=== PATIENT | female | born 1960 | race Caucasian/White ===

== ENCOUNTER 2023-09-06 15:16 | Emergency (ER) | payer OTHER, SELFPAY ==
[2023-09-06] VITALS (48 sets, daily range): BP systolic 101–142; BP diastolic 63–103
[2023-09-06] MEDS: DILAUDID 0.5 MG IV (15:31)
--- NOTE | 2023-09-06 16:45 | ED.GENMED ---
History of Present Illness
<Gaviota Tian PA-C - Last Filed: 09/06/23 20:46>
General
Chief Complaint: Fall
Source: patient
Exam Limitations: none
Time Seen by Provider: 09/06/23 15:21
Nursing documentation reviewed up to this point in time: agreed with
Travel History
Have you had any contact with someone who has COVID-19?: No
Do you have any symptoms of coronavirus? Fever > 100 degrees, chills, cough, shortness of breath, sore throat, loss of taste or smell, muscle aches, or headache?: No
History of Present Illness
History of Present Illness:
63 Y/O F with no sig pmh
here with left hip/leg pain after fall
she was walking carrying her 3 year old granddaughter and somehow tripped and fell
she doesn't really know how she landed but denies hitting her head
the grandchild didn't get injured
pt was unable to get up
she has abrasions on her left knee and is unable to move her left leg
she says 'it's locked.'
she has no headache, neck pain, cp, sob, syncope, vomiting, numbness/tingling/weakness, back pain
via EMS.
Past History
<Gaviota Tian PA-C - Last Filed: 09/06/23 20:46>
Past History
ED Past Medical History: None
ED Past Surgical History: None
Social History
Tobacco: Non-smoker
Alcohol: None
Drug: None
Personal:
Living: with family
Review of Systems
<GOMEZ Ace Last Filed: 09/06/23 20:46>
Review of Systems
Allergies reviewed?: Yes
All Other Systems: Not applicable
Phy Exam
<Gaviota Tian PA-C - Last Filed: 09/06/23 20:46>
Physical Exam
Physical Exam:
GENERAL: Alert , in no apparent distress
HEAD: NCAT
NECK: no midline tenderness, active ROM intact, no paraspinal muscle tenderness;
EYE: pupils equal and reactive, EOMs intact.
ENT: o/p clr, mmm. no hemotympanum
CARDIAC: Regular rate and rhythm, no edema
LUNGS: Clear breath sounds bilaterally, no acute respiratory distress, no wheezes/rales/rhonchi
ABDOMEN: Soft, without focal tenderness, no r/g, no cvat
NEUROLOGICAL: Alert and oriented, no focal neuro deficits, CN intact, 5/5 strength, sensation intact
SKIN: Warm and dry, abrasions left knee
MUSCULOSKELETAL: left knee flexed, cannot fully extend, due to left hip pain
laying on right hip
unable to move the left hip
normal sensation distally
PSYCH: Normal and appropriate interaction.
Course
<Gaviota Tian PA-C - Last Filed: 09/06/23 20:46>
Orders/Labs/Results
Orders:
Orders
09/06/23 15:25
CT Head W/o Iv Contrast Urgent
Comment:
Reason For Exam: fall
HYDROmorphone [Dilaudid] 0.5 mg IV NOW STA
Tetanus/Diphth/Acelpertussis [Adacel] 0.5 ml IM .ONCE ONE
CR Pelvis - 1 Or 2 Views Urgent
Reason For Exam: left hip pain after fall
Femur, Left 2 View [CR Femur - Left Min 2 Vw] Urgent
Comment:
Reason For Exam: fall, unable to move left hip
09/06/23 17:25
ASA Classification Routine
Propofol [Diprivan] 50 mg IV NOW STA
09/06/23 17:26
ASA Classification Routine
HYDROmorphone [Dilaudid] 0.25 mg IV NOW STA
Propofol [Diprivan] 30 mg IV NOW STA
09/06/23 18:02
CR Hip - LT without Pel 1 Vw Stat
Reason For Exam: post reduction
Vital Signs
Initial and Last Documented VS:
Initial Vital Signs
Temp Pulse Resp BP Pulse Ox
98.1 F 88 16 138/86 96
09/06/23 15:18 09/06/23 15:18 09/06/23 15:18 09/06/23 15:18 09/06/23 15:18
Last Documented Vital Signs
Temp Pulse Resp BP Pulse Ox
98.1 F 102 20 114/99 98
09/06/23 15:18 09/06/23 20:00 09/06/23 20:00 09/06/23 20:00 09/06/23 20:00
<Ronaldo Guy, DO - Last Filed: 09/06/23 18:07>
Orders/Labs/Results
Orders:
Orders
09/06/23 15:25
CT Head W/o Iv Contrast Urgent
Comment:
Reason For Exam: fall
HYDROmorphone [Dilaudid] 0.5 mg IV NOW STA
Tetanus/Diphth/Acelpertussis [Adacel] 0.5 ml IM .ONCE ONE
CR Pelvis - 1 Or 2 Views Urgent
Reason For Exam: left hip pain after fall
Femur, Left 2 View [CR Femur - Left Min 2 Vw] Urgent
Comment:
Reason For Exam: fall, unable to move left hip
09/06/23 17:25
ASA Classification Routine
Propofol [Diprivan] 50 mg IV NOW STA
09/06/23 17:26
ASA Classification Routine
HYDROmorphone [Dilaudid] 0.25 mg IV NOW STA
Propofol [Diprivan] 30 mg IV NOW STA
02/22/24 18:02
CR Hip - LT without Pel 1 Vw Stat
Reason For Exam: post reduction
Vital Signs
Initial and Last Documented VS:
Initial Vital Signs
Temp Pulse Resp BP Pulse Ox
98.1 F 88 16 138/86 96
09/06/23 15:18 09/06/23 15:18 09/06/23 15:18 09/06/23 15:18 09/06/23 15:18
Last Documented Vital Signs
Temp Pulse Resp BP Pulse Ox
98.1 F 102 20 114/99 98
09/06/23 15:18 09/06/23 20:00 09/06/23 20:00 09/06/23 20:00 09/06/23 20:00
<Ronaldo Guy DO - Last Filed: 09/06/23 18:07>
Moderate Sedation
ASA Risk Score: Class I
Chart and allergies reviewed: Yes
Consent for anesthesia obtained: Yes
Time out completed (validating right patient & procedure): Yes
History of difficult intubation: No
Airway free of obstruction: Yes
Patient has a gag reflex: Yes
Patient is able to open mouth: Yes
Patient has no dentures: Yes
Patient has no loose teeth: Yes
Medication administered by Provider during Moderate Sedation: IV Propofol (mg)
Total dose administered: 70
Time drug administered: 17:58
Start Time: 17:58
Stop Time: 18:08
Comment: Time Out: 179
Joint/Fracture Reduction
left lateral posterior Hip:
Indication for procedure:: Left Hip Disolcation
Procedure completed by: Gaviota Tian PA-C and Ronaldo Guy DO
Consent form signed: Yes
Joint reduced: with anesthesia sedation
Injury was: closed
Further treatement: needs further treatment
Post reduction exam: stable
Capillary Refill: normal
Normal distal neurovascular exam?: Yes
Peripheral Pulses: posterior tibial (left): 2+ and dorsalis pedis (left): 2+
<Gaviota Tian PA-C - Last Filed: 09/06/23 20:46>
MDM/Problems Addressed
Differential Diagnosis Includes:
hip dislocation, hip fracture
MDM/Problems Addressed:
63 y/o F with no sig pmh
mechanical fall while carrying her granddaughter and cannot weight bear or move left hip
abrasions left knee
no head trauma
no neck complaints
pt has a slightly distractibility; probably related to trauma/pain
head ct neg
pt's xray shows posterior L hip dislocation
she was given conscious sedation adn we easily reduced left hip
pt was pretty sleepy, she had received iv pain meds just before the sedation
09/06/2023 2046 PM
pt reassessed; birght eyed, awake, alert
will try po fluds
anticipate d/c home
<Gaviota Tian PA-C - Last Filed: 09/06/23 20:46>
*Critical Care Note
Total Time (30-74mins, 75-104mins- exclusive of procedures): Not Applicable
ED Attending Note
<Gaviota Tian PA-C - Last Filed: 09/06/23 20:46>
-
Portions of this chart may have been created with voice recognition software.� Occasional wrong word or��sound alike� substitutions may have occurred due to the inherent limitations of voice recognition software.
<Ronaldo Guy DO - Last Filed: 09/06/23 18:07>
ED Attending Note
Patient seen and examined by attending physician: Yes
I performed the substantive portion of visit, reviewed & personally made and approve the management plan that is documented in note by myself or JOSE.: Yes
ED Attending Note:
I have seen and evaluated the patient with a [id number] encounter. I have spoken to the advance practicer provider and involved in the medical history, the physical exam, medical decision making.
Evaluation and management service: agree unless noted differently below.
Results interpretation: agree unless noted differently below.
Focused HPI: 63-year-old female presenting with a fall. She complains of left hip pain
Physical exam: Patient has internally rotated left leg with hip tenderness. Distal leg neurovascularly intact
Medical Decision Making: X-ray confirms hip dislocation. Patient consented for moderate sedation and reduction
Discharge Plan
Departure
Patient Disposition: Home (Routine Discharge)
Date of Disposition: 09/06/23
Time of Disposition: 20:42
Patient with high blood pressure during this ER visit?: No
Condition: Fair
Discharge Problem:
Dislocation of hip, left, closed
Instructions: Hip Dislocation (DC), Skin Abrasions (DC), MODERATE SEDATION ADULT
Referrals:
Brigido Ramirez MD [Family Provider] -
Tao Moncada MD [Active] -
Activity Restrictions/Additional Instructions:
WEAR THE KNEE IMMOBILIZER UNTIL YOU SEE ORTHOPEDICS
TAKE TYLENOL OR MOTRIN FOR PAIN NEEDED
USE A WALKER TO HELP YOU WALK
RETURN FOR ANY CONCERNS LIKE REDISLOCATION, SEVERE PAIN, NUMBNESS/TINGLING/WEAKNESS OR ANY CONCENRS,
Interventions
Interventions:
*Risk Screen - Suicide Last Done: 09/06/23 15:18
*General Assessment Last Done: 09/06/23 15:18
*Neglect/Abuse Screening Last Done: 09/06/23 15:18
*ED COVID-19 Vaccine History Last Done: 09/06/23 15:18
ED-Musculoskeletal Assessment Last Done: 09/06/23 17:30
ED- Neurological Assessment Last Done: 09/06/23 17:30
ED-Skin Assessment Last Done: 09/06/23 17:30
[2023-09-06] MEDS: DILAUDID 0.25 MG IV (17:48)
[2023-09-06] MEDS: ADACEL 0.5 ML IM (18:30)
== END 2023-09-06 22:21 | disposition home or self-care (01) ==
LOC: EMR 15:16
PROVIDERS: EMERGENCY PHYSICIAN Student in an Organized Health Care Education/Training Program; FAMILY PHYSICIAN Family Medicine
DX: S73.005A Unspecified dislocation of left hip, initial encounter (principal); W19.XXXA Unspecified fall, initial encounter; Y93.01 Activity, walking, marching and hiking
CPT/HCPCS: 99284; 96374; 96375; 96376; 96372; 27250; 99152; 70450; 72170; 73501; 73552; 90715

== ENCOUNTER → 2024-09-05 08:49 | Outpatient (REF) | payer OTHER, SELFPAY | LOC: RAD 08:49 | PROVIDERS: ATTENDING PHYSICIAN Physician Assistant; FAMILY PHYSICIAN Student in an Organized Health Care Education/Training Program | DX: M81.0 Age-related osteoporosis without current pathological fracture (principal); Z13.820 Encounter for screening for osteoporosis | CPT/HCPCS: 77080 ==